=== PATIENT | female | born 1985 | race Caucasian/White ===

== ENCOUNTER → 2016-09-02 | Outpatient (CLI) | payer MEDICAID ==
[~2016-09-02] MED LIST: ACHD5005 PO; ALBU8.5H2; ALPR0.5T72 PO; ALPR1TAB7; AMOX500C2; ARMO150T3; BC PILL PO; BENZ100C18 PO; BUDE6HFA; CEFP500T4 PO; CEPH500C PO; CETI10TA17 PO; CIPR500S2 PO; CLAR-19; CODE-54 PO; DCS100C PO; ESCI20TA2 PO; ESCI20TA38; ESCI20TA45; FLUC200T45 PO; FLUO20CA42 PO; FLUT16SP22 NS; FRS325T PO; HYDR-34 PO; HYDR-3720 PO; HYDR-690; IBP800T PO; KETO-22 PO; LAMO150T2; LORA1TAB; LRT10T; METH4TAB PO; METR500T PO; NAPR-243 PO; NF-PREG50C; NITR100C3 PO; NYST1000; OMEP40CA36; PENI500T PO; PNT40TEC PO; PRD20T PO; PREG50CA2; PREN1TAB39 PO; RANI25TA PO; SULF1TAB35 PO; SULF1TAB38 PO; TRAZ150T42 PO; VORT10TA PO
--- OUTSIDE RECORDS SUMMARY | 2016-09-02 07:54 | XMS REPORT | Continuity of Care Document ---
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 If you do not see the information that you expected, contact Release of Information in the Health Information Management department at [phone] for further assistance in locating additional records.[facility] Active Allergies and Adverse Reactions No Known Allergies Current Medications Prescription Sig. Disp. Refills Start End Date Status Date PREGABALIN (LYRICA PO) Take by mouth. Active nitrofurantoin SR Take 1 Cap by mouth twice 14 Cap 0 08/05/19 Active (MACROBID) 100 mg capsule daily. 14 ondansetron (ZOFRAN) 4 mg Take 1 Tab by mouth every 8 Tab 0 08/05/19 Active tablet 8 hours as needed for 14 Nausea. 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
--- NOTE | 2016-09-02 09:20 | Diagnostic Imaging Report ---
PROCEDURE: MR imaging cervical spine without contrast. TECHNIQUE: Multiplanar, multisequence MR imaging of the cervical spine was performed without contrast. INDICATION: Neck pain, left arm pain. COMPARISON: There are no prior MRI studies available for comparison. The plain film examination of the cervical spine performed on 06/07/2015 failed to show any sign of an acute abnormality. FINDINGS: On the reconstructed parasagittal images of this exam, there is slight straightening of the cervical spine. This may be secondary to positioning. The vertebral body heights are within normal limits and the intervertebral disc spaces are fairly well-maintained. There is mild desiccation of the disc at every level. There is a slight disc bulge eccentric to the right at C5-6. The disc effaces the right ventral aspect of the thecal sac and narrows the AP diameter to approximately 10.2 mm. There does not appear to be any significant narrowing of the neural foramen at this level. The remainder of the cervical spine is unremarkable for spinal stenosis or nerve root encroachment. There is no abnormal signal arising from the cord or the vertebral bodies to indicate an acute abnormality. There is increased signal along the anterior half of T2 on both the T1 and T2-weighted sequences. Most likely, this is secondary to a vertebral body hemangioma. There is no paraspinal mass visualized. IMPRESSION: 1. There is mild degenerative disc disease involving the cervical spine. There is a disc bulge eccentric to the right at C5-6 but there does not appear to be any significant central stenosis or nerve root encroachment at this level. 2. The remainder of the cervical spine is unremarkable for spinal stenosis or nerve root encroachment. 3. There is no sign of an acute bony abnormality or for cord lesion. Dictated by: Dictated on workstation # [id number]
== END ==
LOC: RAD 07:50
PROVIDERS: ATTEND Nurse Practitioner Family
DX: M50.30 Other cervical disc degeneration, unspecified cervical region (principal)
CPT/HCPCS: 72141

== ENCOUNTER 2016-10-24 10:14 | Outpatient (CLI) | payer MEDICAID ==
[~2016-10-24] VITALS: Ht 170.2 cm; Wt 93.4 kg
[2016-10-24] MEDS ORDERED: DEXAMETHASONE PF 10 MG/ML (DECADRON) VIAL ONE (10:18)
[2016-10-24 10:27] VITALS: BP 117/74
[2016-10-24 10:57] VITALS: BP 99/72
--- NOTE | 2016-10-24 12:35 | Pain Medicine-Procedure ---
Procedure Pre-Op/Post-Op Diagnosis Diagnosis: disc disorder with radiculopathy, cervical Indications for Operation Neck pain Attending Surgeon Katarzyna Procedure Date of Service: Oct 24, 2016 Procedure: Cervical Epidural Steroid Injection at the C7-T1 Level under Fluoroscopic Guidance Procedure: Pt was identified in the holding area. After risks, benefits, and alternatives were discussed with the patient, informed consent was obtained. An IV was placed by nursing staff prior to procedure. Patient was brought to the fluoroscopy suite and placed prone on the operating table. A time out was performed. Vital signs were monitored throughout the procedure. The patients neck was prepped and draped in the usual sterile fashion. The patients skin was anesthetized using 1% Lidocaine. A 18 gauge tuohy needle was inserted and advanced to the C7-T1 epidural space under fluoroscopic guidance using the loss of resistance technique. The needle position was confirmed in the AP and lateral view. After negative aspiration 2 ml of non-ionic contrast was injected under live fluoroscopy which showed good spread of the contrast in the epidural space at the appropriate level, there was no intravascular or subarachnoid spread. Again, after negative aspiration, 3 ml of preservative free normal saline and 10 mg of dexamethasone was injected. The needle was removed and the patient was transferred to the recovery area in stable condition. And after a brief period of observation was discharged to home in stable condition with no new neurologic deficits. Complications None LUCILLE MCKEON MD Oct 24, 2016 12:35 pm
== END 2016-10-24 11:05 | disposition home or self-care (01) ==
LOC: CARD 10:14
PROVIDERS: ATTEND Pain Medicine Pain Medicine
DX: M50.13 Cervical disc disorder with radiculopathy, cervicothoracic region (principal); Z79.899 Other long term (current) drug therapy
CPT/HCPCS: 62321